=== PATIENT | female | born 1965 | race Caucasian/White ===

== ENCOUNTER 2021-12-15 08:05 | Outpatient (CLI) | payer OTHER, SELFPAY ==
--- NOTE | 2021-12-15 08:15 | CRLHL7_ITS ---
For Patients: As a result of the Century Cures Act, medical imaging exams and procedure reports are released immediately into your electronic medical record. You may view this report before your referring provider. If you have questions, please contact your health care provider. BILATERAL SCREENING MAMMOGRAM WITH COMPUTER-AIDED DETECTION AND TOMOSYNTHESIS TECHNIQUE: CC and MLO views were obtained. These mammographic images have been obtained using full-field digital technique. These mammographic images were interpreted with the benefit of computer-aided detection. Breast Tomosynthesis was used in this interpretation. COMPARISON FILM: 11/26/20, 11/25/19, 05/18/18 FINDINGS: There are scattered areas of fibroglandular density IMPRESSION: There is no radiographic evidence for malignancy. ASSESSMENT: BI-RADS Category 1: Negative RECOMMENDATION: Routine screening mammogram in 1 year. A lay language report of this examination will be provided to the patient. Son Reyes M.D. Diagnostic Radiologist [email or web address] AKI/Dictated by: Son Reyes MD @ 12/15/2021 8:55:00 AM (Electronically Signed)
== END 2021-12-15 08:06 | disposition home or self-care (01) ==
LOC: MAMMO 08:06
PROVIDERS: PCP Physician Assistant Medical; Visit Provider Physician Assistant Medical
DX: Z12.31 Encounter for screening mammogram for malignant neoplasm of breast (principal)
CPT/HCPCS: 77063; 77067

== ENCOUNTER 2022-07-30 08:59 | Emergency (ER) | payer OTHER, SELFPAY ==
[2022-07-30 09:06] VITALS: BP 143/89; PULSE 65; RESP 18; TEMP 37; O2SAT 99; BMI 22.5
--- NOTE | 2022-07-30 09:33 | ED_ITS ---
HPI - Chest Pain General Time Seen by Provider: 09:33 Date Seen: 07/30/22 Chief Complaint: Chest Pain Stated Complaint: Burning in chest and LT leg Time Seen by Provider: 07/30/22 09:32 Source: patient and RN notes reviewed Mode of arrival: ambulatory Limitations: no limitations History of Present Illness HPI narrative: Patient is a 57-year-old female coming to the ER ambulatory of her own accord with concern of some burning left chest pain and some left leg pain. Monday last , a week ago, she was out shopping and just developed some left burning chest pain. It has come and gone during the week. She did trying an acid earlier in the week thinking it could be heartburn. Did not really notice a difference. Seemed to get better but then last night was worse again and when she awoke this morning it was present. There is no respiratory component with it. She has had no cough or cold symptoms. Has not been ill. No nausea vomiting or abdominal pain. She has noticed some left upper burning thigh pain during the week. This morning, she did notice a little lower posterior pain in the calf just above the ankle and did have a little low back pain. She has never had a blood clot before, no significant history of sciatica. She does not take any hormones, is a nonsmoker. She is leaving for [place] next Monday. Just wants to make sure she is okay. Pain has been there constantly since last night and this morning. No pertinent family history that she is aware of. MD complaint: chest pain Onset (ago): day(s) Related Data Allergies Allergy/AdvReac Type Severity Reaction Status Date / Time latex Allergy Mild Verified 06/16/22 14:16 Penicillins Allergy Mild Irritable Verified 06/16/22 14:16 nickel Allergy Unknown itching Verified 06/16/22 14:16 Sulfa Antibiotics Allergy Mild Hives Uncoded 06/16/22 14:16 Review of Systems Status of ROS Reports: 10 or more systems reviewed and unremarkable except as noted in History and below [facility] Medical History Diverticulitis ?K57.92 - Diverticulitis of intestine, part unspecified, without perforation or abscess without bleeding (ICD-10) History of colonic polyps ?Z86.010 - Personal history of colonic polyps (ICD-10) Surgical History History of section ?Z98.891 - History of uterine scar from previous surgery (ICD-10) History of colonoscopy ?Z98.890 - Other specified postprocedural states (ICD-10) History of dilation and curettage ?Z98.890 - Other specified postprocedural states (ICD-10) History of left knee surgery ?Z98.890 - Other specified postprocedural states (ICD-10) Family History Other Heart disease Social History Narrative: Former smoker-smoker age 25 for about 9 years, none since Smoking Status: Never smoker Do you use any of these nicotine containing products: None How often do you have a drink containing alcohol: never AUDIT-C Alcohol total score: 0 Non-prescribed substance use: denies use Exam Const Vital Signs, click to edit/add: Vital Signs - 24 hr 07/30/22 09:06 07/30/22 10:37 07/30/22 09:43 Temperature 98.6 F Pulse Rate [Right Pulse Oximeter] 65 65 Respiratory Rate 18 16 Blood Pressure [Right Upper Arm] 143/89 H 149/84 H Pulse Oximetry 99 99 100 Oxygen Delivery Method Room Air Room Air Documenting provider has reviewed patient's vital signs: yes Common normals: no apparent distress, average body habitus, oriented x3, no limitations, healthy appearing and alert General appearance: cooperative, comfortable, well kempt and well developed HENDC Common normals: normocephalic, head/scalp atraumatic, hearing grossly normal bilaterally, external nose normal and moist oral mucous membranes Head and scalp: normocephalic and atraumatic Nose: external nose normal Eye Common normals: PERRL, EOMs intact bilaterally, conjunctivae normal and no scleral icterus Conjunctiva: conjunctiva(e) normal Pupil: PERRL Neck & C-Spine Common normals: full ROM, no lymphadenopathy, supple, no meningeal signs, no JVD and thyroid normal Thyroid: thyroid normal Chest Common normals: inspection of chest normal and palpation of chest normal Resp Common normals: normal respiratory effort, no retractions, no use of accessory muscles and clear to auscultation bilaterally Auscultation: clear to auscultation bilaterally Cardio Common normals: no JVD, regular rate, regular rhythm, S1 normal heart sound, S2 normal heart sound, no gallops, no clicks and no murmurs Rate: regular rate Rhythm: regular rhythm Heart sounds: S1 normal and S2 normal GI Common normals: Normal to inspection, nondistended, normoactive bowel sounds present, soft to palpation, non-tender, no hepatosplenomegaly and no masses Palpation: soft and no hepatosplenomegaly Extremity Common normals: normal to inspection, full ROM, no calf tenderness and no pedal edema Neuro Common normals: oriented x3 Sensorium/orientation: alert Meningeal signs: no meningeal signs Psych Appearance: well kempt Course Course Hospital Course: Have reviewed with patient it is difficult to tie a burning chest symptoms together with some thigh pain and then some lower calf pain today outside of thromboembolic disease such as DVT with PE. She is not hypoxic, not tachycardic, no tachypnea. Her initial EKG is reassuring we normal. Reviewed with her that we will be getting a full complement of labs. We will start with a chest x-ray. She could have to different symptoms going on. Burning chest pain can be from respiratory standpoint, cardiac standpoint, thromboembolic dis ease, even possibly GI pathology. The left leg certainly could be an initiating sciatica that is developing. Certainly does not tie in with burning chest pain however. She understands that we may need to proceed with chest CT as well as an ultrasound of her left lower extremity to rule out thromboembolic disease. Reevaluation(s) Reevaluation #1: Reviewed with patient that her chest x-ray and all of her labs are normal. We reviewed that we certainly have ruled out any acute heart attack, no pericarditis likely or myocarditis based on this workup. There is certainly no evidence of any inflammatory change or infectious etiology based on normal chest x-ray and labs, normal inflammatory markers. This is not pancreatitis. Is still possible that she could be having referred pain into the chest from GI, still could be esophagitis, gastritis. We did discuss possibility of trying [id number] omeprazole and follow up next week. We did discuss the possibility of a sciatica maybe developing with the left leg. With D-dimer being normal, this makes venous thrombo embolic disease extremely unlikely. If she would have a DVT and chest symptomatology because of up pulmonary embolus, would certainly expect to see elevated D-dimer and potentially other physical stigmata on exam or at least with vitals. Time: 11:56 Vital Signs Vital signs: Initial Vital Signs Temperature 98.6 F 07/30/22 09:06 Temperature Source Temporal Artery Scan 07/30/22 09:06 Pulse Rate 65 07/30/22 09:06 Respiratory Rate 18 07/30/22 09:06 Blood Pressure 143/89 H 07/30/22 09:06 Blood Pressure Mean 107 07/30/22 09:06 Blood Pressure Position Sitting 07/30/22 09:06 Pulse Oximetry 99 07/30/22 09:06 Oxygen Delivery Method Room Air 07/30/22 09:06 Vital Signs Temperature 98.6 F 07/30/22 09:06 Pulse Rate 65 07/30/22 09:06 Respiratory Rate 18 07/30/22 09:06 Blood Pressure 143/89 H 07/30/22 09:06 Pulse Oximetry 99 07/30/22 09:06 Oxygen Delivery Method Room Air 07/30/22 09:06 Temperature 98.6 F 07/30/22 09:06 Pulse Rate 65 07/30/22 10:37 Respiratory Rate 16 07/30/22 10:37 Blood Pressure 149/84 H 07/30/22 10:37 Pulse Oximetry 99 07/30/22 10:37 Oxygen Delivery Method Room Air 07/30/22 10:37 MDM - Chest Pain Lab Data Attestation: I reviewed the patient's lab results. Labs: Lab Results 07/30/22 07/30/22 Range/Units 09:44 09:45 WBC 3.64 L (4.50-11.00) K/uL RBC 4.08 (4.00-5.20) m/uL Hgb 13.0 (12.0-16.0) gm/dL Hct 38.6 (33.0-51.0) % MCV 95 (80-100) fL MCH 32 (26-34) pg MCHC 34 (32-36) gm/dL RDW Coeff of Martha 12.1 (11.5-15.5) % Plt Count 153 (140-440) K/uL Neut % (Auto) 61.6 (42.0-72.0) % Lymph % (Auto) 28.3 (20-44) % [facility] % (Auto) 8.2 (0.0-11.0) % Eos % (Auto) 1.4 (0.0-7.0) % Baso % (Auto) 0.5 (0.0-3.0) % Neut # (Auto) 2.20 (1.7-7.0) K/uL Lymph # (Auto) 1.00 (0.90-2.90) K/uL [facility] [place] # (Auto) 0.30 (0.00-0.90) K/UL Eos # (Auto) 0.10 (0.00-0.50) K/uL Baso # (Auto) 0.00 (0.00-0.30) K/uL ESR 2 (2-20) mm/hr D-Dimer Quant (PE/DVT) 0.27 (0.00-0.50) ug/ml VBG pH 7.419 (7.32-7.43) VBG pCO2 42 (40-50) mmHG VBG pO2 42.5 (25-47) mmHG VBG HCO3 27 (21-28) mmol/L Sodium 135 (135-149) mmol/L Potassium 4.5 (3.6-5.1) mmol/L Chloride 105 (96-114) mmol/L Carbon Dioxide 26 (20-32) mmol/L BUN 15 (7-30) mg/dL Creatinine 0.5 (0.5-1.5) mg/dL Estimated Creat Clear 111.70 Estimated GFR 109 ml/min Glucose 98 (60-115) mg/dL Calcium 9.1 (8.4-10.6) mg/dL Magnesium 1.9 (1.5-2.6) mg/dL Total Bilirubin 0.5 (0.1-1.5) mg/dL AST 25 (12-35) U/L ALT 20 (4-35) U/L Alkaline Phosphatase 45 (40-150) U/L C-Reactive Protein < 0.5 L (0.5-1.0) mg/dL NT-Pro-B Natriuret Pep 72 pg/mL Total Protein 6.9 (6.0-8.3) g/dL Albumin 4.2 (3.3-5.0) g/dL Lipase 29 (23-300) U/L POC Troponin I 0.01 (0.01-0.04) ng/ml Imaging Data Chest x-ray: Attestation: I have reviewed the pertinent imaging results. My impression: No acute pathology on my preliminary review. Radiologist's impression: Patient: LOLA WHITTINGTON Facility:?[facility] Patient ID:?[id number] Site Patient ID:?[id number]. Site :?1965 Study:?XRay Chest PCXR-07/30/2022 9:52:29 AM Ordering Physician:Danielle Ng Final Report: INDICATION : Burning chest pain. COMPARISON : None. TECHNIQUE : Single chest radiograph. FINDINGS: Normal cardiomediastinal contours. No focal pulmonary opacity. No significant pleural effusion or pneumothorax. IMPRESSION : No acute cardiopulmonary abnormality. Dictated by Israel Ledbetter MD @ 07/30/2022 10:25:04 AM (Electronic Signature) ECG Data Attestation: I personally reviewed and interpreted this ECG as follows: (Normal sinus rhythm, 62 beats per minute. No ischemia. Low voltage aVL. QT corrected 460 milliseconds.) ECG interpretation date: 07/30/22 ECG interpretation time: 09:33 Prior ECG tracings: not available for review Critical Care Time Critical Care Time Critical Care Time: No Discharge Plan Discharge Clinical Impression: Acute pain of left lower extremity, Burning chest pain Patient Disposition: Home, Self-Care Condition: Stable Instructions: Chest Pain (ED), Sciatica (ED), Noncardiac Chest Pain (ED) Additional Instructions: Certainly can try some Tylenol and ibuprofen per bottle directions for your low back and leg. I do wonder if this might be an early lumbar radiculopathy or sciatica which is a nerve problem. I do think you can still try to walk and exercise as long as they are not increasing your symptoms. As far as the chest discomfort, do need you to follow-up in clinic next week. Can try some styh-dbj-ykriiiy omeprazole and take daily and see if that might help. Certainly if you have a sense of increasing chest pain, difficulty breathing, any fast or irregular heart rhythm developed, do need you to return to the ER for further evaluation. Follow Up/Referrals: Chloé Wise PA-C [Primary Care Provider] - Stand Alone Forms: [employer] Info Instructions
[2022-07-30 09:43] VITALS: O2SAT 100
--- NOTE | 2022-07-30 09:43 | CRLHL7_ITS ---
For Patients: As a result of the Century Cures Act, medical imaging exams and procedure reports are released immediately into your electronic medical record. You may view this report before your referring provider. If you have questions, please contact your health care provider. INDICATION : Burning chest pain. COMPARISON : None. TECHNIQUE : Single chest radiograph. FINDINGS: Normal cardiomediastinal contours. No focal pulmonary opacity. No significant pleural effusion or pneumothorax. IMPRESSION : No acute cardiopulmonary abnormality. Dictated by Israel Ledbetter MD @ 07/30/2022 10:25:04 AM (Electronically Signed)
[2022-07-30 09:54] LABS: HCO3 VBG 27 mmol/L (21-28); PCO2 VBG 42 mmHG (40-50); PO2 VBG 42.5 mmHG (25-47); pH VBG 7.419 (7.32-7.43)
[2022-07-30 09:56] LABS: Basophils Percent Auto 0.5 % (0.0-3.0); Eosinophils Percent Auto 1.4 % (0.0-7.0); Hematocrit 38.6 % (33.0-51.0); Lymphocytes Percent Auto 28.3 % (20-44); Mean Corpuscular HGB Conc 34 gm/dL (32-36); Mean Corpuscular Hemoglobin 32 pg (26-34); Mean Corpuscular Volume 95 fL (80-100); Monocytes Percent Auto 8.2 % (0.0-11.0); Neutrophils Percent Auto 61.6 % (42.0-72.0); Platelet Count* 153 K/uL (140-440); RDW Coefficient of Variation % 12.1 % (11.5-15.5); Red Blood Count 4.08 m/uL (4.00-5.20); Slide Review Reflex No; White Blood Count* 3.64 K/uL (4.50-11.00)
[2022-07-30 10:15] LABS: Troponin, Point-of-Care* 0.01 ng/ml (0.01-0.04)
[2022-07-30 10:18] LABS: Albumin* 4.2 g/dL (3.3-5.0); Chloride* 105 mmol/L (96-114)
[2022-07-30 10:19] LABS: Potassium* 4.5 mmol/L (3.6-5.1); Sodium* 135 mmol/L (135-149)
[2022-07-30 10:21] LABS: Alkaline Phosphatase* 45 U/L (40-150); Aspartate Amino Transferase* 25 U/L (12-35); Bilirubin Total* 0.5 mg/dL (0.1-1.5); Blood Urea Nitrogen* 15 mg/dL (7-30); Carbon Dioxide* 26 mmol/L (20-32); Creatinine* 0.5 mg/dL (0.5-1.5); D Dimer Quantitative* 0.27 ug/ml (0.00-0.50); Estimated Glomerular Filt Rate 109 ml/min; Lipase* 29 U/L (23-300); Total Protein* 6.9 g/dL (6.0-8.3)
[2022-07-30 10:22] LABS: Alanine Aminotransferase* 20 U/L (4-35); Calcium* 9.1 mg/dL (8.4-10.6); Glucose* 98 mg/dL (60-115); Magnesium* 1.9 mg/dL (1.5-2.6)
[2022-07-30 10:25] LABS: C Reactive Protein* < 0.5 mg/dL (0.5-1.0)
[2022-07-30 10:30] LABS: Erythrocyte SedimentationRate* 2 mm/hr (2-20)
[2022-07-30 10:32] LABS: NT Pro B Type NatriureticPept* 72 pg/mL
[2022-07-30 10:37] VITALS: BP 149/84; PULSE 65; RESP 16; O2SAT 99
== END 2022-07-30 12:15 | disposition home or self-care (01) ==
PROVIDERS: Emergency Provider Family Medicine; PCP Physician Assistant Medical
DX: M79.605 Pain in left leg (principal); R07.9 Chest pain, unspecified
CPT/HCPCS: 36415; 71045; 80053; 82803; 83690; 83735; 83880; 84484; 85025; 85379; 85651; 86140; 93005; 94761; 99284

== ENCOUNTER 2023-02-13 14:40 | Outpatient (CLI) | payer OTHER, SELFPAY ==
--- NOTE | 2023-02-13 15:00 | CRLHL7_ITS ---
For Patients: As a result of the Cures Act, medical imaging exams and procedure reports are released immediately into your electronic medical record. You may view this report before your referring provider. If you have questions, please contact your health care provider. BILATERAL SCREENING MAMMOGRAM WITH COMPUTER-AIDED DETECTION AND TOMOSYNTHESIS TECHNIQUE: CC and MLO views were obtained. These mammographic images have been obtained using full-field digital technique. These mammographic images were interpreted with the benefit of computer-aided detection. Breast tomosynthesis was used in this interpretation. COMPARISON FILM: 12/15/21, 11/26/20, 11/26/19. FINDINGS: There are scattered areas of fibroglandular density. IMPRESSION: There is no radiographic evidence for malignancy. ASSESSMENT: BI-RADS Category 1: Negative RECOMMENDATION: Routine screening mammogram in 1 year. A lay language report of this examination will be provided to the patient. SON SANDOVAL M.D. Diagnostic Radiologist [email or web address] MAIK/amos Transcribed: 02/16/2023, 6:[address]/Dictated by: Son Sandoval MD @ 02/16/2023 11:52:00 AM (Electronically Signed)
== END 2023-02-13 14:41 | disposition home or self-care (01) ==
LOC: MAMMO 14:42
PROVIDERS: PCP Physician Assistant Medical; Visit Provider Physician Assistant Medical
DX: Z12.31 Encounter for screening mammogram for malignant neoplasm of breast (principal)
CPT/HCPCS: 77063; 77067

== ENCOUNTER 2023-06-23 08:50 | Outpatient (REF) | payer OTHER, SELFPAY ==
--- OUTSIDE RECORDS SUMMARY | 2023-06-25 07:16 | XMS_ITS | Clinical Summary ---
Author Name Unknown Organization [facility] Address [address] [place] [address] Care Team Providers Care Frame Cleaner Name Role Phone Unavailable Primary Care Provider Unavailabl e Allergies Active Allergy Reactions Criticality Noted Date Comments Latex 09/08/2003 Penicillins 09/08/2003 rash Sulfa Antibiotics 09/08/2003 rash Medications Medication Sig Dispensed Refills Start Date End Date Status LEXAPRO 10 MG OR TABSIndications:Routine general medical examination at a health care facility 1 TABLET DAILY 90 4 05/16/2005 Active Active Problems Problem Noted Date Diagnosed Date Mastodynia 09/08/2003 Immunizations Name Administration Dates Next Due Influenza (IIV3) PF 02/27/2011,04/16/2003 Family History Medical History Relation Comments Heart Disease Maternal Grandfather Heart Disease Maternal Grandmother Heart Disease Mother Relation Status Comments Maternal Grandfather Maternal Grandmother Mother Social History Tobacco Use Types Packs/Day Years Used Date Smoking Tobacco: Never Alcohol Use Standard Drinks/Week Comments Yes 0 (1 standard drink = 0.6 oz pur e alcohol) Sex and Gender Information Value Date Recorded Sex Assigned at Not on file Gender Identity Not on file Sexual Orientation Not on file Last Filed Vital Signs Vital Sign Reading Time Taken Comments Blood Pressure 118/70 05/16/2005 10:30 AM TIRE TESTER Pulse 68 05/16/2005 10:30 AM TIRE TESTER Temperature - - Respiratory Rate - - Oxygen Saturation - - Inhaled Oxygen Concentration - - Weight 58 kg (127 lb 12.8 oz) 05/16/2005 10:30 A M TIRE TESTER Height 167.6 cm (5' 6) 05/16/2005 10:30 AM TIRE TESTER Body Mass Index 20.63 05/16/2005 10:30 AM TIRE TESTER Plan of Treatment Not on file
--- OUTSIDE RECORDS SUMMARY | 2023-06-25 07:16 | XMS_ITS | Encounter Summary ---
Author Name Unknown Organization [facility] Address [address] [place] [address] Care Team Providers Care Stakeholder Manager Name Role Phone Doctor, Rigoberto MOROCHO Primary Care Provider Unavailabl e Encounter Details Date Type Department Care Team (Late st Contact Info) Description 05/16/2003 [place] [address] [place] [address] Kervin Mcgarry MD XXX RESIGNED XXX [address] [place] [address] ER ENCOUNTER (Primary Dx) Social History Tobacco Use Types Packs/Day Years Used Date Smoking Tobacco: Never Alcohol Use Standard Drinks/Week Comments Yes 0 (1 standard drink = 0.6 oz pur e alcohol) Sex and Gender Information Value Date Recorded Sex Assigned at Not on file Gender Identity Not on file Sexual Orientation Not on file documented as of this encounter Progress Notes * 05/16/2003 11:59 PM [id number] 00:00 Emergency Department Encounter-VAZQUEZ NASH) [Entered: 0400:00 Agent Contract Clerk ([facility])] : 65 CHIEF COMPLAINT: Head pain. HISTORY OF PRESENT ILLN ESS: The patient is a 37-year-old female, who fell a couple of weeks ago and still has been having a lot of head pain since then. She was initially seen in urgent care. No tests were done at that erin e. She has pain in the top of her head and in the back of her head where she hit. She does have a l ittle bit of blurred vision and lightheadedness at times. No leg or arm weakness. She tried Tylenol at home and tried some Sudafed at home because she felt a little bit stuffy without relief. No othe r complaints at this time. PAST MEDICAL HISTORY: Knee surgery. SOCIAL HISTORY: Occasionally drink s alcohol, does not smoke. FAMILY HISTORY: Noncontributory. REVIEW OF SYSTEMS: All other systems are negative, except for listed in the HPI. MEDICATIONS: Sudafed. ALLERGIES: Penicillin, sulfa, L atex. PHYSICAL EXAMINATION: General - the patient is alert and cooperative. Vitals - blood pressur e 137/84, pulse 77, respiratory rate 16, temperature 96.6, O2 sats 100% on room air. HEENT - head at raumatic, normocephalic; pupils equal, round and reactive to light. EOMs intact. Oropharynx - pink, moist, intact, no lesions. External auditory canals without drainage. NECK supple, full range of mo tion. CARDIOVASCULAR - regular rate and rhythm without murmurs. PULMONARY - clear bilaterally. ABDOM EN - soft, positive bowel sounds, nontender. EXTREMITIES - no focal deficits; pulses full and symmet nils, sensation appears normal; strength is intact. NEUROLOGIC - cranial nerves II-XII appear grossly intact. SKIN pink, warm and dry. ED COURSE: Secondary to the patient's continuing symptoms, CT sc an of the head was ordered and was negative for edema or bleed. DIAGNOSIS: Head contusion. PLAN: The patient is to be discharged home. Tylenol #3 for headache. Follow-up with primary care provider in 3-5 days. Return here if headache gets worse, vomiting or neck pain. [id number] VAZQUEZ VEGAS MD MT: Document: [id number] [place], [place] Name: LOLA WHITTINGTON EMERGENCY ROOM ENCOUNTER Page 2 of 2 LCN: ANN SEGURA C: 05/16/2003 [place], [place] Name: MR#: : Admit Date: JONNATHAN WHITTINGTON -38 1965 05/16/2003 Doctor: VAZQUEZ VEGAS MD EMERGENCY ROOM ENCOUNTER P [age] Electronically filed by Cecily Fry 05/26/2003 8:34 AM documented in this encounter Plan of Treatment Not on file documented as of this encounter Visit Diagnoses Diagnosis ER ENCOUNTER- Primary documented in this encounter Care Teams Stakeholder Manager Relationship Specialty Start Date End Date Doctor, None, PCP - General 05/04/15 01/05/17 documented as of this encounter
--- OUTSIDE RECORDS SUMMARY | 2023-06-25 07:16 | XMS_ITS | Referral Summary ---
Author Name Unknown Organization [facility] Address [address] [place] [address] Care Team Providers Care Sand And Gravel Plant Operator Name Role Phone Unavailable Primary Care Provider [...] Dates Next Due Influenza (IIV3) PF 02/27/2011,04/16/2003 Social History Tobacco Use Types Packs/Day Years [...] Comments Blood Pressure 118/70 05/16/2005 10:30 AM FLIGHT LINE MECHANIC Pulse 68 05/16/2005 10:30 AM FLIGHT LINE MECHANIC Temperature - - Respiratory Rate - - Oxygen Saturation - - Inhaled Oxygen Concentration - - Weight 58 kg (127 lb 12.8 oz) 05/16/2005 10:30 A M FLIGHT LINE MECHANIC Height 167.6 cm (5' 6) 05/16/2005 10:30 AM FLIGHT LINE MECHANIC Body Mass Index 20.63 05/16/2005 10:30 AM FLIGHT LINE MECHANIC Plan of Treatment Not on file
== END 2023-06-23 08:51 | disposition home or self-care (01) ==
LOC: NFLDREF 08:50
PROVIDERS: PCP Physician Assistant Medical; Referring Provider Physician Assistant Medical; Visit Provider Physician Assistant Medical
DX: Z13.228 Encounter for screening for other metabolic disorders (principal); Z13.220 Encounter for screening for lipoid disorders; Z13.29 Encounter for screening for other suspected endocrine disorder
CPT/HCPCS: 80053; 80061; 84443

== ENCOUNTER 2023-12-28 07:50 | Outpatient (CLI) | payer OTHER, SELFPAY ==
--- OUTSIDE RECORDS SUMMARY | 2023-12-28 07:53 | XMS_ITS | Clinical Summary ---
Author Organization [facility] Address [address] [place] [address] Care Team Providers Care Salvationist Name Role Phone Unavailable Primary Care Provider [...] Comments Blood Pressure 118/70 05/16/2005 10:30 AM PATIENT REGISTRATION SUPERVISOR Pulse 68 05/16/2005 10:30 AM PATIENT REGISTRATION SUPERVISOR Temperature - - Respiratory Rate - - Oxygen Saturation - - Inhaled Oxygen Concentration - - Weight 58 kg (127 lb 12.8 oz) 05/16/2005 10:30 A M PATIENT REGISTRATION SUPERVISOR Height 167.6 cm (5' 6) 05/16/2005 10:30 AM PATIENT REGISTRATION SUPERVISOR Body Mass Index 20.63 05/16/2005 10:30 AM PATIENT REGISTRATION SUPERVISOR Plan of Treatment Not on file
--- OUTSIDE RECORDS SUMMARY | 2023-12-28 07:53 | XMS_ITS | Referral Summary ---
Author Organization [facility] Address [address] [place] [address] Care Team Providers Care Punch Operator Name Role Phone Unavailable Primary Care [...] Comments Blood Pressure 118/70 05/16/2005 10:30 AM TRAFFIC SUPERVISOR Pulse 68 05/16/2005 10:30 AM TRAFFIC SUPERVISOR Temperature - - Respiratory Rate - - Oxygen Saturation - - Inhaled Oxygen Concentration - - Weight 58 kg (127 lb 12.8 oz) 05/16/2005 10:30 A M TRAFFIC SUPERVISOR Height 167.6 cm (5' 6) 05/16/2005 10:30 AM TRAFFIC SUPERVISOR Body Mass Index 20.63 05/16/2005 10:30 AM TRAFFIC SUPERVISOR Plan of Treatment Not on file
--- OUTSIDE RECORDS SUMMARY | 2023-12-28 07:53 | XMS_ITS | Encounter Summary ---
Author Organization [facility] Address [address] [place] [address] Care Team Providers Care Manager General Name Role Phone Doctor, Rigoberto MOROCHO Primary Care Provider Unavailabl e Encounter Details Date Type Department Care Team (Late st Contact Info) Description 05/16/2003 [place] [address] [place] [address] Kervin Mcgarry MD XXX RESIGNED XXX [address] [place] [address] ER ENCOUNTER (Primary Dx) Social [...] encounter Progress Notes * 05/16/2003 11:59 PM [id number] 00:00 Emergency Department Encounter-VAZQUEZ NASH) [Entered: 0400:00 Pitch Filler ([facility])] : 65 CHIEF COMPLAINT: Head pain. [...] pain. [id number]_ VAZQUEZ VEGAS MD MT: Document: [id number] [place], [place] Name: [facility]A EMERGENCY ROOM ENCOUNTER Page 2 of 2 LCN: ANN SEGURA C: 05/16/2003 [place], [place] Name: MR#: : Admit Date: JONNATHAN WHITTINGTON -38 1965 05/16/2003 Doctor: VAZQUEZ VEGAS MD EMERGENCY ROOM ENCOUNTER P [age] Electronically filed by Cecily Fry 05/26/2003 8:34 AM documented in this encounter Plan of Treatment Not on file documented as of this encounter Visit Diagnoses Diagnosis ER ENCOUNTER- Primary documented in this encounter Care Teams Manager General Relationship Specialty Start Date End Date Doctor, None, PCP - General 05/04/15 01/05/17 documented as of this encounter
--- NOTE | 2023-12-28 09:21 | W.ANESCHARGE ---
Anesthesia Charges Start Date/Time Anesthesia Start Date: 12/28/23 Anesthesia Start Time: 08:38 Stop Date/Time Anesthesia Stop Date: 12/28/23 Anesthesia Stop Time: 09:16
--- NOTE | 2023-12-28 10:02 | W.ANESCHARGE ---
Anesthesia Charges Start Date/Time Anesthesia Start Date: 12/28/23 Anesthesia Start Time: 08:38 Stop Date/Time Anesthesia Stop Date: 12/28/23 Anesthesia Stop Time: 09:16
== END 2023-12-28 07:51 | disposition home or self-care (01) ==
LOC: OP CLINIC 07:50
PROVIDERS: PCP Physician Assistant Medical; Visit Provider Surgery
DX: Z12.11 Encounter for screening for malignant neoplasm of colon (principal); K63.5 Polyp of colon; K57.30 Diverticulosis of large intestine without perforation or abscess without bleeding; K64.4 Residual hemorrhoidal skin tags; Z86.010 Personal history of colon polyps
CPT/HCPCS: 00811; 45385; 88305; J2704

== ENCOUNTER 2024-03-05 14:55 | Outpatient (CLI) | payer OTHER, SELFPAY ==
--- OUTSIDE RECORDS SUMMARY | 2024-03-05 14:57 | XMS_ITS | Referral Summary ---
Author Organization [facility] Address [address] [place] [address] Care Team Providers Care Tools And Parts Attendant Name Role Phone Unavailable Primary Care Provider Unavailabl e Allergies Active Allergy Reactions Criticality Noted Date Comments Latex 09/08/2003 Penicillins 09/08/2003 rash Sulfa Antibiotics 09/08/2003 rash Medications LEXAPRO 10 MG OR TABSIndications: Routine general medical examination at a health care facility 1 TABLET DAILY 90 4 05/16/2005 Active Active Problems Problem Noted Date Diagnosed Date Mastodynia 09/08/2003 Immunizations Name Administration Dates Next Due Influenza (IIV3) PF 02/27/2011,04/16/2003 Social History Tobacco Use Types Packs/Day Years Used Date Smoking Tobacco: Never Alcohol Use Standard Drinks/Week Comments Yes 0 (1 standard drink = 0.6 oz pur e alcohol) Comments No Sex and Gender Information Value Date Recorded Sex Assigned at Not on file Legal Sex Female 3:25 AM APPARATUS LINEMAN Gender Identity Not on file Sexual Orientation Not on file Last Filed Vital Signs Vital Sign Reading Time Taken Comments Blood Pressure 118/70 05/16/2005 10:30 AM APPARATUS LINEMAN Pulse 68 05/16/2005 10:30 AM APPARATUS LINEMAN Temperature - - Respiratory Rate - - Oxygen Saturation - - Inhaled Oxygen Concentration - - Weight 58 kg (127 lb 12.8 oz) 05/16/2005 10:30 A M APPARATUS LINEMAN Height 167.6 cm (5' 6) 05/16/2005 10:30 AM APPARATUS LINEMAN Body Mass Index 20.63 05/16/2005 10:30 AM APPARATUS LINEMAN Plan of Treatment Not on file
--- OUTSIDE RECORDS SUMMARY | 2024-03-05 14:57 | XMS_ITS | Clinical Summary ---
Author Organization [facility] Address [address] [place] [address] Care Team Providers Care Pack Worker Name Role Phone Unavailable Primary Care Provider [...] on file Legal Sex Female 3:25 AM INSURANCE REPRESENTATIVE Gender Identity Not on file Sexual Orientation Not on file Last Filed Vital Signs Vital Sign Reading Time Taken Comments Blood Pressure 118/70 05/16/2005 10:30 AM INSURANCE REPRESENTATIVE Pulse 68 05/16/2005 10:30 AM INSURANCE REPRESENTATIVE Temperature - - Respiratory Rate - - Oxygen Saturation - - Inhaled Oxygen Concentration - - Weight 58 kg (127 lb 12.8 oz) 05/16/2005 10:30 A M INSURANCE REPRESENTATIVE Height 167.6 cm (5' 6) 05/16/2005 10:30 AM INSURANCE REPRESENTATIVE Body Mass Index 20.63 05/16/2005 10:30 AM INSURANCE REPRESENTATIVE Plan of Treatment Not on file
--- OUTSIDE RECORDS SUMMARY | 2024-03-05 14:57 | XMS_ITS | Encounter Summary ---
Author Organization [facility] Address [address] [place] [address] Care Team Providers Care Wildland Fire Fighter Name Role Phone Doctor, Rigoberto MOROCHO Primary Care Provider Unavailabl e Encounter Details Date Type Department Care Team (Late st Contact Info) Description 05/16/2003 [place] [address] [place] [place] [address] Kervin Mcgarry MD XXX RESIGNED XXX [address] [place] [address] ER ENCOUNTER (Primary Dx) Social History Tobacco Use Types Packs/Day Years Used Date Smoking Tobacco: Never Alcohol Use Standard Drinks/Week Comments Yes 0 (1 standard drink = 0.6 oz pur e alcohol) Comments No Sex and Gender Information Value Date Recorded Sex Assigned at Not on file Legal Sex Female 3:25 AM BOX OFFICE AGENT Gender Identity Not on file Sexual Orientation Not on file documented as of this encounter Progress Notes * 05/16/2003 11:59 PM [id number] 00:00 Emergency Department Encounter-VAZQUEZ NASH () [Entered: 0400:00 Construction Carpenter ([facility])] : 65 CHIEF COMPLAINT: Head pain. [...] pain. EM150_ VAZQUEZ VEGAS MD MT: Document: [id number] [place], [place] Name: LOLA WHITTINGTON EMERGENCY ROOM ENCOUNTER Page 2 of 2 LCN: ANN SEGURA C: 05/16/2003 [place], [place] Name: MR#: : Admit Date: JONNATHAN WHITTINGTON [id number] 1965 05/16/2003 Doctor: VAZQUEZ VEGAS MD EMERGENCY ROOM ENCOUNTER P age 1 of 2 Electronically filed by Cecily Fry 05/26/2003 8:34 AM documented in this encounter Plan of Treatment Not on file documented as of this encounter Visit Diagnoses Diagnosis ER ENCOUNTER- Primary documented in this encounter Care Teams Wildland Fire Fighter Relationship Specialty Start Date End Date Doctor, None, PCP - General 05/04/15 01/05/17 documented as of this encounter
--- NOTE | 2024-03-05 15:00 | CRLHL7_ITS ---
For Patients: As a result of the Century Cures Act, medical imaging exams and procedure reports are released immediately into your electronic medical record. You may view this report before your referring provider. If you have questions, please contact your health care provider. BILATERAL SCREENING MAMMOGRAM WITH COMPUTER-AIDED DETECTION AND TOMOSYNTHESIS TECHNIQUE: CC and MLO views were obtained. These mammographic images have been obtained using full-field digital technique. These mammographic images were interpreted with the benefit of computer-aided detection. Breast Tomosynthesis was used in this interpretation. COMPARISON FILM: 02/13/23, 12/15/21, 11/26/20. FINDINGS: There are scattered areas of fibroglandular density IMPRESSION: There is no radiographic evidence for malignancy. ASSESSMENT: BI-RADS Category 1: Negative RECOMMENDATION: Routine screening mammogram in 1 year. A lay language report of this examination will be provided to the patient. Son Reyes M.D. Diagnostic Radiologist [email or web address] AKI/Dictated by: Son Reyes MD @ 03/06/2024 8:55:00 AM (Electronically Signed)
== END 2024-03-05 14:56 | disposition home or self-care (01) ==
LOC: MAMMO 14:56
PROVIDERS: PCP Physician Assistant Medical; Visit Provider Physician Assistant Medical
DX: Z12.31 Encounter for screening mammogram for malignant neoplasm of breast (principal)
CPT/HCPCS: 77063; 77067

== ENCOUNTER 2024-12-24 09:23 | Outpatient (CLI) | payer OTHER, SELFPAY ==
[2024-12-24 09:36] LABS: White Blood Count* 3.95 K/uL (4.50-11.00)
[2024-12-24 09:37] LABS: Hematocrit* 41.4 % (33.0-51.0); Hemoglobin* 13.8 gm/dL (12.0-16.0); Mean Corpuscular HGB Conc 33 gm/dL (32-36); Mean Corpuscular Hemoglobin 32 pg (26-34); Mean Corpuscular Volume 95 fL (80-100); Red Blood Count* 4.37 m/uL (4.00-5.20); Slide Review Reflex No
[2024-12-24 14:02] LABS: Chloride* 103 mmol/L (96-114)
[2024-12-24 14:03] LABS: Albumin* 4.5 g/dL (3.3-5.0); Potassium* 4.4 mmol/L (3.6-5.1); Sodium* 137 mmol/L (135-149)
[2024-12-24 14:05] LABS: Cholesterol* 241 mg/dL (90-199)
[2024-12-24 14:06] LABS: Alanine Aminotransferase* 18 U/L (4-35); Alkaline Phosphatase* 53 U/L (40-150); Anion Gap 6 mEq/L (7-15); Aspartate Amino Transferase* 25 U/L (12-35); Bilirubin Total* 0.8 mg/dL (0.1-1.5); Blood Urea Nitrogen* 17 mg/dL (7-30); Calcium* 9.7 mg/dL (8.4-10.6); Carbon Dioxide* 28 mmol/L (20-32); Creatinine* 0.7 mg/dL (0.5-1.5); Estimated Glomerular Filt Rate 100 ml/min; Glucose* 91 mg/dL (60-115); HDL Cholesterol* 50 mg/dL (>=50); Total Protein* 6.9 g/dL (6.0-8.3); Triglycerides* 108 mg/dL (40-149)
[2024-12-24 14:33] LABS: TSH With Reflex to FT4* 1.840 uIU/mL (0.270-4.200)
[2024-12-27 03:34] LABS: HPV Source Cervical/Vag
[2024-12-27 09:35] LABS: Pap Test Digital Imaging Done
== END 2024-12-24 09:24 | disposition home or self-care (01) ==
PROVIDERS: PCP Physician Assistant Medical; Visit Provider Physician Assistant Medical
DX: I10 Essential (primary) hypertension (principal); F41.9 Anxiety disorder, unspecified; Z13.6 Encounter for screening for cardiovascular disorders; Z12.4 Encounter for screening for malignant neoplasm of cervix; Z11.51 Encounter for screening for human papillomavirus (HPV)
CPT/HCPCS: 80053; 80061; 84443; 85027; 87624; 87625; 88141; 88142; 88175

== ENCOUNTER 2024-12-30 07:09 | Outpatient (CLI) | payer OTHER, SELFPAY ==
--- NOTE | 2024-12-30 08:09 | P.ANES_ITS ---
Anesthesia Charges Start Date/Time Anesthesia Start Date: 12/30/24 Anesthesia Start Time: 07:42 Stop Date/Time Anesthesia Stop Date: 12/30/24 Anesthesia Stop Time: 08:06 Coding CPT Codes CPT Codes: BOONE LWR INTST SCR COLSC - 61834 ([id number]) QK - PREKINDERGARTEN TEACHER 2-4 CNCRNT BOONE PROC, QX - COUPON REDEMPTION CLERK SVC W/ MD MED DIRECTION, P2 - PATIENT W/MILD SYST DISEASE
--- NOTE | 2024-12-30 08:09 | W.ANESCHARGE ---
Anesthesia Charges Start Date/Time Anesthesia Start Date: 12/30/24 Anesthesia Start Time: 07:42 Stop Date/Time Anesthesia Stop Date: 12/30/24 Anesthesia Stop Time: 08:06 Coding CPT Codes CPT Codes: BOONE LWR INTST SCR COLSC - 16160 ([id number]) QK - PACKAGE LINE RELIEF OPERATOR 2-4 CNCRNT BOONE PROC, QX - OFFICE RN SVC W/ MD MED DIRECTION, P2 - PATIENT W/MILD SYST DISEASE
--- NOTE | 2024-12-31 07:09 | P.ANES_ITS ---
Anesthesia Charges Start Date/Time Anesthesia Start Date: 12/30/24 Anesthesia Start Time: 07:42 Stop Date/Time Anesthesia Stop Date: 12/30/24 Anesthesia Stop Time: 08:06 Coding CPT Codes CPT Codes: BOONE LWR INTST SCR COLSC - 72580 ([id number]) P2 - PATIENT W/MILD SYST DISEASE, QX - TARGET NETWORK ANALYST SVC W/ MD MED DIRECTION, QK - FOOTBALL COACH 2-4 CNCRNT ANES PROC
--- NOTE | 2024-12-31 07:09 | W.ANESCHARGE ---
Anesthesia Charges Start Date/Time Anesthesia Start Date: 12/30/24 Anesthesia Start Time: 07:42 Stop Date/Time Anesthesia Stop Date: 12/30/24 Anesthesia Stop Time: 08:06 Coding CPT Codes CPT Codes: BOONE LWR INTST SCR COLSC - 45098 ([id number]) P2 - PATIENT W/MILD SYST DISEASE, QX - BILLET HEATER OPERATOR SVC W/ MD MED DIRECTION, QK - SENIOR VISUAL DESIGNER 2-4 CNCRNT ANES PROC
== END 2024-12-30 07:10 | disposition home or self-care (01) ==
PROVIDERS: PCP Physician Assistant Medical; Visit Provider Internal Medicine
DX: Z12.11 Encounter for screening for malignant neoplasm of colon (principal); Z86.0100 Personal history of colon polyps, unspecified; K57.30 Diverticulosis of large intestine without perforation or abscess without bleeding
CPT/HCPCS: 00812; 45378; J2704

== ENCOUNTER 2025-01-02 04:00 | Emergency (ER) | payer OTHER, SELFPAY ==
[2025-01-02] VITALS (10 sets, daily range): BP systolic 132–204; BP diastolic 67–99; PULSE 56–85; RESP 12–20; TEMP 36.7; O2SAT 94–100; BMI 22.5
--- OUTSIDE RECORDS SUMMARY | 2025-01-02 04:02 | XMS_ITS | Encounter Summary ---
Author Organization [facility] Address [address] [place] [address] Care Team Providers Care Elevator Mechanic Apprentice Name Role Phone Doctor, Rigoberto MOROCHO Primary Care Provider Chloé Howell PA-C Primary Care Provider [phone] Encounter Details Date Type Department Care Team (Late st Contact Info) Description 05/16/2003 [address] [place] [address] [place] [address] Kervin Mcgarry MD XXX RESIGNED XXX [address] [place] [address] ER ENCOUNTER (Primary Dx) Social History Tobacco Use Types Packs/Day Years Used Date Smoking Tobacco: Never Smokeless Tobacco: Never Alcohol Use Standard Drinks/Week Comments Yes 0 (1 standard drink = 0.6 oz pur e alcohol) Comments No Sex and Gender Information Value Date Recorded Sex Assigned at Not on file Legal Sex Female 3:25 AM HAND MOLDER Gender Identity Not on file Sexual Orientation Not on file documented as of this encounter Progress Notes * 05/16/2003 11:59 PM [id number] 00:00 Emergency Department Encounter-VAZQUEZ NASH) [Entered: 0400:00 Health Aid ([facility])] : 65 CHIEF COMPLAINT: Head pain. [...] pain. EM150_ VAZQUEZ VEGAS MD MT: Document: [id number] [place], [place] Name: LOLA WHITTINGTON EMERGENCY ROOM ENCOUNTER Page 2 of 2 LCN: ANN SEGURA C: 05/16/2003 [place], [place] Name: MR#: : Admit Date: JONNATHAN WHITTINGTON -38 1965 05/16/2003 Doctor: VAZQUEZ VEGAS MD EMERGENCY ROOM ENCOUNTER P age 1 of 2 Electronically filed by Cecily Fry 05/26/2003 8:34 AM documented in this encounter Plan of Treatment Not on file documented as of this encounter Visit Diagnoses Diagnosis ER ENCOUNTER- Primary documented in this encounter Care Teams Elevator Mechanic Apprentice Relationship Specialty Start Date End Date Doctor, MD Rigoberto PCP - General 05/04/15 01/05/17 Chloé Wise PA-C [place] [address] [place], [place] [address] PCP - General 05/19/24 documented as of this encounter
--- OUTSIDE RECORDS SUMMARY | 2025-01-02 04:02 | XMS_ITS | Clinical Summary ---
Author Organization [facility] Address [address] [place] [address] Care Team Providers Care Cell Support Operator Name Role Phone Chloé Wise PA-C Primary Care Provider [phone] Allergies Active Allergy Reactions Criticality Noted Date Comments Latex 09/08/2003 Penicillins 09/08/2003 rash Sulfa Antibiotics 09/08/2003 rash Medications LEXAPRO 10 MG OR TABSIndications: Routine general medical examination at a health care facility 1 TABLET DAILY 90 4 6 Active Additional Information Patient not taking.Reported on 05/19/2024 FLUoxetine (PROZAC) 20 MG capsule 20 MG ORALLY EVERY DAY 4 Active ALPRAZolam (XANAX) 0.5 MG tablet 0.5 - 1 MG (1 - 2 X 0.5 MG) ORALLY EVERY DAY NEEDED FOR FEAR OF FLYING 4 Active lisinopril (ZESTRIL) 20 MG tablet TAKE 20 MG ORALLY DAILY 4 Active Active Problems Problem Noted Date Diagnosed Date Mastodynia 09/08/2003 Immunizations Immunization Administration Dates Next Due Influenza (IIV3) PF 02/27/2011,04/16/2003 Family History Medical History Relation Comments Heart Disease Maternal Grandfather Heart Disease Maternal Grandmother Heart Disease Mother Relation Status Comments Maternal Grandfather Maternal Grandmother Mother Social History Tobacco Use Types Packs/Day Years Used Date Smoking Tobacco: Never Smokeless Tobacco: Never Tobacco Cessation:Counseling Given: Not Answered Alcohol Use Standard Drinks/Week Comments Yes 0 (1 standard drink = 0.6 oz pur e alcohol) Comments No Sex and Gender Information Value Date Recorded Sex Assigned at Not on file Legal Sex Female 3:25 AM MEMORY CARE DIRECTOR Gender Identity Not on file Sexual Orientation Not on file Last Filed Vital Signs Vital Sign Reading Time Taken Comments Blood Pressure 132/77 05/19/2024 9:12 AM MEMORY CARE DIRECTOR Pulse 67 05/19/2024 9:12 AM MEMORY CARE DIRECTOR Temperature 36.8 C (98.3 F) 05/19/2024 9:12 AM MEMORY CARE DIRECTOR Respiratory Rate 16 05/19/2024 9:12 AM MEMORY CARE DIRECTOR Oxygen Saturation 96% 05/19/2024 9:12 AM MEMORY CARE DIRECTOR Inhaled Oxygen Concentration - - Weight 61.2 kg (135 lb) 05/19/2024 9:12 AM MEMORY CARE DIRECTOR Height 167.6 cm (5' 6) 05/19/2024 9:12 AM MEMORY CARE DIRECTOR Body Mass Index 21.79 05/19/2024 9:12 AM MEMORY CARE DIRECTOR Plan of Treatment Health Maintenance Due Date Last Done Comments ADVANCE CARE PLANNING 1965 ANNUAL REVIEW OF HM ORDERS 1965 CT COLONOGRAPHY 1965 FIT 1965 FLEX SIG 1965 sDNA (Cologuard) 1965 COLONOSCOPY 07/19/1975 COLORECTAL CANCER SCREENING 07/19/1975 HIV SCREENING 1980 HEPATITIS C SCREENING 07/19/1983 HEPATITIS B VACCINE (1 of 3 - 19+ 3-dose series) 1984 PAP 1986 YEARLY PREVENTIVE VISIT 05/16/2006 05/16/2005 DIABETES SCREENING 05/16/2008 05/16/2005, 05/05/2005 LIPID 05/16/2010 05/16/2005 PNEUMOCOCCAL VACCINE 50+ YEARS (1 of 1 - PCV) 07/19/2015 ZOSTER VACCINE (1 of 2) 07/19/2015 MAMMO SCREENING 05/18/2020 05/18/2018, 04/08, 05/04/2015, Additional history exists COVID-19 VACCINE ( season) 2024 06/05/2021, 07/02/2020, 06/04/2020 PHQ-2 (once per calendar year) 2024 INFLUENZA VACCINE (#1) 2025 , 02/10/2023, 02/17/2022, Additional history exists DTAP/TDAP/TD VACCINE (2 - Td or Tdap) 12/04/2028 12/04/2018, 05/06/1999 HPV VACCINE (No Doses Required) Completed MENINGITIS VACCINE Aged Out No longer eligible based on patient's age to complete this topic Procedures Procedure Name Priority Date/Time Associated Diagnosis Comments MA DIAGNOSTIC RIGHT W BENITO Routine 05/18/2018 3:09 PM MEMORY CARE DIRECTOR Abnormal mammogram HCL COMPREHENSIVE METABOLIC PANEL Routine 05/16/2005 11:09 AM MEMORY CARE DIRECTOR Routine Medical Exam CL AFF A.M.A. LIPID PANEL Routine 05/16/2005 11:09 AM MEMORY CARE DIRECTOR Routine Medical Exam from Last 3 Months or Most Recently Relevant to Health Maintenance Results * MA Diagnostic Right w/Benito (05/18/2018 3:09 PM MEMORY CARE DIRECTOR) Anatomical Region Laterality Modality Breast Bilateral Mammography Impressions 05/18/2018 3:22 PM MEMORY CARE DIRECTOR IMPRESSION: BI-RADS CATEGORY: 1 - Negative No evidence of malignancy. Screening detected asymmetry represents benign glandular tissue. Results were discussed with the patient during her appointment. As long as her physical examination remains stable, annual screening mammography would be recommended. RECOMMENDED FOLLOW-UP: Annual Mammography. AMARA CALDWELL MD Narrative 05/18/2018 3:22 PM MEMORY CARE DIRECTOR MA DIAGNOSTIC RIGHT W BENITO, US BREAST RIGHT LIMITED 1-3 QUADRANTS - 05/18/2018 HISTORY: Recalled from screening mammogram of 05/03/2018 regarding right upper breast density. COMPARISON: Screening mammograms 05/03/2018. Bilateral diagnostic mammogram, 05/04/2015. Screening mammogram, 02/25/2011. BREAST DENSITY: Scattered fibroglandular densities. FINDINGS: Diagnostic views of the right breast were obtained, including tomosynthesis. With the benefit of tomosynthesis, the pattern of glandular tissue in the upper right breast appears similar to previous screening mammograms dating back to 2010. There is no persistent mass or other suspicious finding to suggest malignancy. Subsequent right upper breast ultrasound confirms the benign mammographic impression showing only normal glandular tissue in the upper right breast. us Keya Bryant MD IMG MAMMOGRAPHY ORDERABLES Final Result * A.M.A. COMPREHENSIVE MET.PANEL (05/16/2005 11:09 AM MEMORY CARE DIRECTOR) Sodium 138 133 - 144 mmol/L [facility] Potassium 3.6 3.4 - 5.3 mmol/L [facility] Chloride 105 94 - 109 mmol/L [facility] Carbon Dioxide 27 20 - 32 mmol/L [facility] Anion Gap 6 6 - 17 mmol/L [facility] Glucose 78 60 - 110 mg/dL [facility] Urea Nitrogen 9 5 - 24 mg/dL [facility] Creatinine 0.70 0.60 - 1.30 mg/dL [facility] GFR Estimate >80 >60 mL/min/1.7 m2 [facility] GFR Estimate If Black >80 >60 mL/min/1.7 m2 [facility] Calcium 8.7 8.5 - 10.4 mg/dL [facility] Bilirubin Total 0.5 0.2 - 1.3 mg/dL [facility] Albumin 3.9 3.3 - 4.6 g/dL [facility] Protein Total 6.9 6.0 - 8.2 g/dL [facility] Alkaline Phosphatase 55 40 - 150 U/L [facility] ALT 27 0 - 50 U/L [facility] AST 16 0 - 45 U/L [facility] 05/16/2005 11:0 9 AM MEMORY CARE DIRECTOR 05/16/2005 11:14 AM MEMORY CARE DIRECTOR Kervin Mcgarry MD LABORATORY Final Result Performing Organization Address City/State/[facility] Co de Phone Number [facility] [address] [place] [address] * A.M.A. LIPID PANEL (05/16/2005 11:09 AM MEMORY CARE DIRECTOR) Cholesterol 151 0 - 200 mg/dL [facility] Comment: LDL Cholesterol is the primary guide to therapy: LDL-cholesterol goal in high risk patients is <100 mg/dL and in very high risk patients is <70 mg/dL. The NCEP recommends further evaluation of: patients with cholesterol <200 mg/dL if additional risk factors are present, cholesterol >240 mg/dL, triglycerides >150 mg/dL, or HDL <40 mg/dL. Triglycerides 57 0 - 150 mg/dL [facility] HDL Cholesterol 52 50 - 110 mg/dL [facility] LDL Cholesterol Calculated 87 0 - 129 mg/dL [facility] Comment: LDL Cholesterol is the primary guide to therapy: LDL-cholesterol goal in high risk patients is <100 mg/dL and in very high risk patients is <70 mg/dL. VLDL-Cholesterol 11 0 - 30 mg/dL [facility] Cholesterol/HDL Ratio 2.9 0.0 - 5.0 [facility] 05/16/2005 11:0 9 AM MEMORY CARE DIRECTOR 05/16/2005 11:14 AM MEMORY CARE DIRECTOR Kervin Mcgarry MD LABORATORY Final Result Performing Organization Address City/State/[facility] Co de Phone Number [facility] [address] [place] [address] from Last 3 Months or Most Recently Relevant to Health Maintenance Insurance [place] [facility] [employer] [place] [id number] Care Teams Cell Support Operator Relationship Specialty Start Date End Date Chloé Wise PA-C [place] [address] [id number] PCP - General 05/19/24
--- NOTE | 2025-01-02 04:17 | CRLHL7_ITS ---
For Patients: As a result of the Cures Act, medical imaging exams and procedure reports are released immediately into your electronic medical record. You may view this report before your referring provider. If you have questions, please contact your health care provider. INDICATION: Chest pain COMPARISON: July 30, 2022 TECHNIQUE: A single view study was obtained as a portable CXR FINDINGS: As discussed below IMPRESSION: No evidence of active pulmonary disease. Dictated by Elio Duckworth MD @ 01/02/2025 4:47:56 AM (Electronically Signed)
[2025-01-02] MEDS: ASPIRIN 81 MG TAB.CHEW 324 MG PO (04:22)
[2025-01-02 04:28] LABS: Hematocrit 38.0 % (33.0-51.0); Hemoglobin* 12.8 gm/dL (12.0-16.0); Immature Granulocytes Abs Auto 0.00 K/uL (0.00-0.30); Immature Granulocytes Pct Auto 0.0 %; Mean Corpuscular HGB Conc 34 gm/dL (32-36); Mean Corpuscular Hemoglobin 32 pg (26-34); Mean Corpuscular Volume 95 fL (80-100); RDW Coefficient of Variation % 12.2 % (11.5-15.5); Red Blood Count 4.02 m/uL (4.00-5.20); White Blood Count* 3.88 K/uL (4.50-11.00)
[2025-01-02 04:32] LABS: Lymphocytes Absolute Auto 1.70 K/uL (0.90-2.90)
[2025-01-02 04:33] LABS: Slide Review Reflex No
[2025-01-02 04:34] LABS: Troponin, Point-of-Care* 0.00 ng/ml (0.01-0.04)
[2025-01-02 04:44] LABS: Albumin* 4.1 g/dL (3.3-5.0); Chloride* 107 mmol/L (96-114); Potassium* 3.7 mmol/L (3.6-5.1); Sodium* 137 mmol/L (135-149)
[2025-01-02 04:47] LABS: Alanine Aminotransferase* 14 U/L (4-35); Alkaline Phosphatase* 54 U/L (40-150); Anion Gap 6 mEq/L (7-15); Aspartate Amino Transferase* 22 U/L (12-35); Bilirubin Total* 0.2 mg/dL (0.1-1.5); Blood Urea Nitrogen* 18 mg/dL (7-30); Carbon Dioxide* 24 mmol/L (20-32); Creatinine* 0.6 mg/dL (0.5-1.5); Est. Creatinine Clearance* 90.84; Estimated Glomerular Filt Rate 103 ml/min; Total Protein* 6.6 g/dL (6.0-8.3)
[2025-01-02 04:48] LABS: Calcium* 9.8 mg/dL (8.4-10.6); Glucose* 106 mg/dL (60-115)
--- NOTE | 2025-01-02 04:56 | ED_ITS ---
HPI - Chest Pain General Chief Complaint: Chest Pain Stated Complaint: chest pain Time Seen by Provider: 01/02/25 04:07 Source: patient Mode of arrival: ambulatory Limitations: no limitations History of Present Illness HPI narrative: 59-year-old female with no prior cardiac history presents to the emergency department with chest pain in her left breast area that radiates to the back 1 hour prior to presentation. Describes as a burning sensation. No shortness of breath, no productive cough. No nausea, GERD or reflux symptoms reported. Does not worsen on exertion, nonpositional. No prior history of similar symptoms. Did not try any interventions prior to coming to ED. No history of DVT or PE. No personal history of cardiac disease. Denies prior echo, stress test or significant cardiac workup. Nonsmoker. Prior cholecystectomy, reports this was uncomplicated. No recent fevers, other illness or pertinent travel. No recent medication changes. Reports that she had an uncomplicated colonoscopy a few days ago. Reports her past medical history is notable for hypertension and anxiety. Prior cholecystectomy, no other abdominal surgeries. No chest surgeries. Allergies to penicillin and sulfa for medications also notes sensitivity to latex and nickel. Nonsmoker. ROS is notable for the chest symptoms only, otherwise denies times 12 systems. Related Data Previous Rx's ?Medication ?Instructions ?Recorded alprazolam 0.5 mg tablet (Xanax) 0.5 - 1 mg (1 - 2 x 0 .5 mg) PO 05/03/24 QDAY PRN fear of flying #4 tabs fluoxetine 20 mg capsule (Prozac) 20 mg PO QDAY #90 ca ps 05/03/24 lisinopril 20 mg tablet 20 mg PO DAILY #90 tabs 12/06 01/30 peg 3350-electrolytes 236 240 ml PO Q10M #4,000 mL gram-22.74 gram-6.74 gram-5.86 gram solution (Golytely) peg 3350-electrolytes 236 240 ml PO ONCE #4,000 mL gram-22.74 gram-6.74 gram-5.86 gram solution (Golytely) Allergies Allergy/AdvReac Type Severity Reaction Status Date / Time latex Allergy Mild Verified 12/24/24 09:02 Penicillins Allergy Mild Irritable Verified 12/24/24 09:02 Sulfa (Sulfonamide Allergy Mild Rash Verified 12/24/24 09:02 Antibiotics) nickel Allergy Unknown itching Verified 12/24/24 09:02 [facility] Medical History Family history of colon cancer ?Z80.0 - Family history of malignant neoplasm of digestive organs (ICD-10) Strain of calf muscle ?S86.819A - Strain of other muscle(s) and tendon(s) at lower leg level, unspecified leg, initial encounter (ICD-10) History of colonic polyps ?Z86.010 - Personal history of colonic polyps (ICD-10) Diverticulitis ?K57.92 - Diverticulitis of intestine, part unspecified, without perforation or abscess without bleeding (ICD-10) Surgical History History of left knee surgery ?Z98.890 - Other specified postprocedural states (ICD-10) History of dilation and curettage ?Z98.890 - Other specified postprocedural states (ICD-10) History of colonoscopy ?Z98.890 - Other specified postprocedural states (ICD-10) History of section ?Z98.891 - History of uterine scar from previous surgery (ICD-10) Family History Other Heart disease Social History Narrative: Former smoker-smoker age 25 for about 9 years, none since What is your current living situation?: I presently have a place to live Problems where you live: no known problems In the past 12 months, utilities in danger of being shut off: no In past 12 months, lack of transportation kept you from medical appts, meetings, work, or getting things needed for daily living: no In the past 12 mos, have been you worried that your food would run out before you had money to buy more?: never true In the past 12 mos, the food you bought just didn't last and you didn't have money to buy more?: never true Smoking Status: Never smoker Do you use any of these nicotine containing products: None How often do you have a drink containing alcohol: never AUDIT-C Alcohol total score: 0 Non-prescribed substance use: denies use How often does anyone, including family, friends and others, physically hurt you : never How often does anyone, including family, friends and others, insult or talk down to you: never How often does anyone, including family, friends and others, threaten you with harm: never How often does anyone, including family, friends and others, scream or curse at you: never Exam Const Vital Signs, click to edit/add: Vital Signs - 24 hr 01/02/25 04:00 01/02/25 04:06 01/02/25 04:07 Temperature 98.0 F Pulse Rate 73 Pulse Rate [Pulse Oximeter] 85 84 Respiratory Rate 18 13 18 Blood Pressure 168/81 H Blood Pressure [Left Upper Arm] 204/99 H 168/81 H Pulse Oximetry 98 100 98 Oxygen Delivery Method Room Air Room Air 01/02/25 04:20 01/02/25 04:23 01/02/25 04:32 Temperature Pulse Rate 68 69 Pulse Rate [Pulse Oximeter] Respiratory Rate 15 12 Blood Pressure 172/93 H 183/96 H Blood Pressure [Left Upper Arm] Pulse Oximetry 98 99 97 Oxygen Delivery Method 01/02/25 05:02 01/02/25 05:31 01/02/25 06:02 Temperature Pulse Rate 70 62 56 L Pulse Rate [Pulse Oximeter] Respiratory Rate 18 20 16 Blood Pressure 166/91 H 132/67 139/82 Blood Pressure [Left Upper Arm] Pulse Oximetry 97 95 94 Oxygen Delivery Method Documenting provider has reviewed patient's vital signs: yes Common normals: no apparent distress General appearance: cooperative, comfortable and well kempt [facility] Common normals: normocephalic, moist oral mucous membranes and oropharynx normal Head and scalp: normocephalic Face and sinus: normal facial exam Mouth: oral and palatal mucosa normal Throat: posterior oropharynx normal Eye Common normals: conjunctivae normal General eye: normal appearance of both eyes Conjunctiva: conjunctiva(e) normal Neck & C-Spine Common normals: full ROM and no lymphadenopathy General: normal visual inspection Resp Common normals: normal respiratory effort, no use of accessory muscles and clear to auscultation bilaterally Effort & inspection: able to speak in complete sentences Auscultation: clear to auscultation bilaterally Cardio Common normals: regular rate, regular rhythm, S1 normal heart sound, S2 normal heart sound and no murmurs Rate: regular rate Rhythm: regular rhythm Heart sounds: S1 normal and S2 normal GI Common normals: Normal to inspection, nondistended, normoactive bowel sounds present, soft to palpation, non-tender, no hepatosplenomegaly and no masses Palpation: soft and no hepatosplenomegaly Extremity Common normals: normal to inspection, normal capillary refill and no pedal edema Psych Appearance: well kempt Attitude: engaged Activity/motor behavior: appropriate eye contact Insight: insight good Judgement: judgment good Skin Common normals: no rashes or lesions noted General skin exam: no rashes or lesions noted Course Course ED Course: 59-year-old female with burning chest pain radiating to the back 1 hour prior to presentation. Differential diagnosis including aortic dissection, acute coronary syndrome, pulmonary embolism, GERD, anxiety, musculoskeletal chest pain, pneumonia, upper respiratory infection, acute cardiac process, heart failure, atypical pancreatitis, amongst many others. Will obtain EKG, placed on assistant store manager, obtain chest x-ray. If any mediastinal widening or abnormalities on chest x-ray, would have a low threshold for a chest CT. I had ordered 325 of aspirin and a trial of nitroglycerin to see if this improves symptoms. Nurses report to me that when they went to give the nitroglycerin, she was already pain free so they did not administer the medication. Blood pressure noted to be elevated on initial presentation, has improved significantly before the administration of any medications. Since she is symptom-free, I will also not be administering any GI medications though I think this is the likely etiology. Await workup. Will need a 2nd set of troponins since onset of symptoms is less than 3 hours. Reevaluation(s) Time of Reevaluation #1: 06:18 Reevaluation #1: Patient remains asymptomatic. Counseled on all findings including 2nd set of troponins which is also negative. Suspect etiology was upper GI in nature and has resolved. No treatment was given in ED. Blood pressure has come down to safe levels, now 130s over 80s. Patient resting comfortably and is arouse for our conversation. Encouraged to try [id number] antacids like famotidine and Tylenol for pain. Counseled that if she has regular symptoms omeprazole or famotidine before bed would be encouraged. Alarm symptoms reviewed that would warrant ED presentation. Primary care follow-up encouraged if her symptoms have not resolved. Counseled that there are further tests that we cannot do in the emergency department, our scope is limited to emergent and immediate types of diagnoses. Primary care follow-up could help us further investigate if she continues to have symptoms. Patient has no further questions. Written instructions provided. Vital Signs Vital signs: Initial Vital Signs Temperature Source Temporal Artery Scan 01/02/25 04:00 Pulse Rate 85 01/02/25 04:00 Respiratory Rate 18 01/02/25 04:00 Blood Pressure 204/99 H 01/02/25 04:00 Blood Pressure Mean 134 H 01/02/25 04:00 Blood Pressure Position Sitting 01/02/25 04:00 Pulse Oximetry 98 01/02/25 04:00 Oxygen Delivery Method Room Air 01/02/25 04:00 Vital Signs Pulse Rate 85 01/02/25 04:00 Respiratory Rate 18 01/02/25 04:00 Blood Pressure 204/99 H 01/02/25 04:00 Pulse Oximetry 98 01/02/25 04:00 Oxygen Delivery Method Room Air 01/02/25 04:00 Temperature 98.0 F 01/02/25 04:07 Pulse Rate 56 L 01/02/25 06:02 Respiratory Rate 16 01/02/25 06:02 Blood Pressure 139/82 01/02/25 06:02 Pulse Oximetry 94 01/02/25 06:02 Oxygen Delivery Method Room Air 01/02/25 04:07 Medications Administered Medications: Discontinued Medications Generic Name Dose Route Start Last Admin Trade Name Freq PRN Reason Stop Dose Admin Aspirin 324 mg 01/02/25 04:17 01/02/25 04:22 Aspirin 81 Mg Tab.Chew PO 01/02/25 04:18 324 mg ONCE ONE Administration MDM - Chest Pain MDM Narrative Medical decision making narrative: Differential diagnosis including upper respiratory infection, anxiety, GERD, acute cardiac process, pneumothorax, musculoskeletal pain, anxiety, amongst others. Radiation to the back does raise concern for possible aortic aneurysm. No risk factors like smoking or other vascular disease. Differential Diagnosis Differential diagnosis: Likely pneumothorax, stable angina, unstable angina pectoris, atypical chest pain, st elevation myocardial infarction, costochondritis, chest pain and biliary colic Medical Records Data Attestation: I reviewed the patient's medical records. Lab Data Attestation: I reviewed the patient's lab results. Lab results narrative: First and 2nd set of troponins both reassuring. Remainder of workup does not show any signs of leukocytosis, anemia, electrolyte abnormality, pancreatitis, inflammation, liver abnormality. All reassuring. Labs: Lab Results 01/02/25 01/02/25 01/02/25 Range/Units 04:22 04:23 06:00 WBC 3.88 L (4.50-11.00) K/uL RBC 4.02 (4.00-5.20) m/uL Hgb 12.8 (12.0-16.0) gm/dL Hct 38.0 (33.0-51.0) % MCV 95 (80-100) fL MCH 32 (26-34) pg MCHC 34 (32-36) gm/dL RDW Coeff of Martha 12.2 (11.5-15.5) % Plt Count 164 (140-440) K/uL Neut % (Auto) 44.7 (42.0-72.0) % Lymph % (Auto) 44.8 H (20-44) % [place]haw % (Auto) 8.2 (0.0-11.0) % Eos % (Auto) 1.8 (0.0-7.0) % Baso % (Auto) 0.5 (0.0-3.0) % Neut # (Auto) 1.70 (1.7-7.0) K/uL Lymph # (Auto) 1.70 (0.90-2.90) K/uL [place]haw # (Auto) 0.30 (0.00-0.90) K/UL Eos # (Auto) 0.10 (0.00-0.50) K/uL Baso # (Auto) 0.00 (0.00-0.30) K/uL Abs Immat Gran (auto) 0.00 (0.00-0.30) K/uL Imm/Tot Granulo (auto) 0.0 % Sodium 137 (135-149) mmol/L Potassium 3.7 (3.6-5.1) mmol/L Chloride 107 (96-114) mmol/L Carbon Dioxide 24 (20-32) mmol/L Anion Gap 6 L (7-15) mEq/L BUN 18 (7-30) mg/dL Creatinine 0.6 (0.5-1.5) mg/dL Estimated Creat Clear 90.84 Estimated GFR 103 ml/min Glucose 106 (60-115) mg/dL Calcium 9.8 (8.4-10.6) mg/dL Total Bilirubin 0.2 (0.1-1.5) mg/dL AST 22 (12-35) U/L ALT 14 (4-35) U/L Alkaline Phosphatase 54 (40-150) U/L Troponin I < 0.01 (0.01-0.04) ng/mL C-Reactive Protein < 0.5 L (0.5-1.0) mg/dL NT-Pro-B Natriuret Pep 58 (See Note) pg/mL Total Protein 6.6 (6.0-8.3) g/dL Albumin 4.1 (3.3-5.0) g/dL Lipase 71 (23-300) U/L POC Troponin I 0.00 L 0.01 (0.01-0.04) ng/ml Imaging Data Chest x-ray: Attestation: I have reviewed the pertinent imaging results. My impression: Normal chest x-ray. Specifically no mediastinal widening, infiltrate, cardiomegaly or effusions Radiologist's impression: FINDINGS: As discussed below IMPRESSION: No evidence of active pulmonary disease. Dictated by Elio Duckworth MD @ 01/02/2025 4:47:56 AM ECG Data Attestation: I personally reviewed and interpreted this ECG as follows: Prior ECG tracings: not available for review Interpretation: Sinus rhythm with a rate of 75. Normal intervals and axis except that QT is very slightly prolonged. No other significant ST or T-wave abnormalities. No ischemic changes. Normal EKG. Discharge Plan Discharge Clinical Impression: Chest pain, non-cardiac Patient Disposition: Home w/ Parent or Adult Condition: Improved Instructions: Noncardiac Chest Pain (ED) Additional Instructions: As we discussed, the chest pain does not seem to be related to the heart. There were no signs of significant infection, heart failure, blockages in the arteries, pneumonias, blood clots, abnormal heart rhythm, problems with the aorta, pancreas or other internal organs. This is great news. I suspect that your symptoms were related to gastric reflux, and esophageal spasm or just gas in the upper stomach. I am glad your symptoms have resolved. Your cleared return to full duty at this time. If you have mild symptoms like that again I would recommend trying [id number] famotidine and some Tylenol. If you have severe symptoms, exertional type symptoms, severe shortness of breath, severe weakness, I would recommend re-evaluation in in ER. If you have these mild type of symptoms happening on a regular basis it is okay to do a trial of stomach acid medicine like famotidine or omeprazole nightly before bed and if that is not successful, I would recommend primary care follow-up for consideration of stress test and other workup that is not available to us in the emergency room. Activity Level: No Restrictions Discharge Diet: Regular Prescriptions: No Action lisinopril 20 mg tablet 20 mg PO DAILY Qty: 90 3RF peg 3350-electrolytes [Golytely] 236-22.74-6.74 -5.86 gram recon soln 240 ml PO Q10M Qty: 4000 0RF Rx Instructions: until fecal effluent is clear fluoxetine [Prozac] 20 mg capsule 20 mg PO QDAY Qty: 90 3RF alprazolam [Xanax] 0.5 mg tablet 0.5 - 1 mg PO QDAY PRN (Reason: fear of flying) Qty: 4 0RF peg 3350-electrolytes [Golytely] 236-22.74-6.74 -5.86 gram recon soln 240 ml PO ONCE Qty: 4000 0RF Rx Instructions: 4pm day prior to procedure. Drink 8oz glass every 15 minutes until 1/2 of solution is gone. 6 hours prior to your procedure time drink 8oz glass every 15 minutes until remaining solution is gone. Follow Up/Referrals: Chloé Wise PA-C [Primary Care Provider, Family Practice] Stand Alone Forms: [email or web address] Info Instructions
[2025-01-02 04:59] LABS: NT Pro B Type NatriureticPept* 58 pg/mL (See Note)
[2025-01-02 06:10] LABS: Troponin, Point-of-Care* 0.01 ng/ml (0.01-0.04)
== END 2025-01-02 06:26 | disposition home or self-care (01) ==
PROVIDERS: Emergency Provider Family Medicine; PCP Physician Assistant Medical
DX: R07.89 Other chest pain (principal)
CPT/HCPCS: 36415; 71046; 80053; 83690; 83880; 84484; 85025; 86140; 93005; 94761; 99284; A9270